=== PATIENT | female | born 1955 | race Caucasian/White ===

== ENCOUNTER → 2020-09-22 10:18 | Outpatient (CLI) | payer MEDICARE, SELFPAY ==
--- NOTE | ~2020-09-22 | DEXA_ITS ---
Bone Density Report Name: Elena Mahoney Age: 65 Sex: Female Ethnicity: White Date of : 1955 Indication: postmenopausal; screening for osteoporosis; height loss; hysterectomy; Referring Provider: LB GIBSON Study: Bone densitometry was performed. Exam Date: September 22, 2020 Accession number: [id number] Bone Density: Region BMD T-score Z-score Classification AP Spine (L1-L4) 0.975 -0.7 1.3 Normal Femoral Neck (Left) 0.641 -1.9 -0.2 Osteopenia Total Hip (Left) 0.806 -1.1 0.2 Osteopenia Femoral Neck (Right) 0.695 -1.4 0.2 Osteopenia Total Hip (Right) 0.797 -1.2 0.2 Osteopenia Total Hip Mean 0.802 -1.2 0.2 Osteopenia World Health Organization criteria for BMD impression classify patients as: Normal (T-score at or above -1.0), Osteopenia (T-score between -1.0 and -2.5), or Osteoporosis (T-score at or below -2.5). 10-year Fracture Risk(1): Major Osteoporotic Fracture 10% Hip Fracture 1.5% Reported Risk Factors: [place] (), Neck BMD=0.641, BMI=27.8 (1) FRAX(R) Version 3.08. Fracture probability calculated for an untreated patient. Fracture probability may be lower if the patient has received treatment. Previous Exams: Region Exam Age BMD T-score BMD Change BMD Change Date g/cm2 vs Baseline vs Previous AP Spine(L1-L4) 09/22/2020 65 0.975 -0.7 0.038* 0.038* 10/31/2017 62 0.937 -1.0 Total Hip(Left) 09/22/2020 65 0.806 -1.1 -0.044* -0.044* 10/31/2017 62 0.850 -0.8 Total Hip(Right) 09/22/2020 65 0.797 -1.2 -0.032* -0.032* 10/31/2017 62 0.829 -0.9 *Denotes significance at 95% confidence level, LSC for AP Spine = 0.022 g/cm2, LSC for Total Hip = 0.027 g/cm2 Clinical Information Provided by Patient: Has used the following medications: Vitamin D, Calcium Has the following medical conditions: Hysterectomy Patient maximum height was 64 Menopause Age: 43 No regular weight bearing exercise Drinks caffeinated beverages Onset of menses at age 11 Number of children 2 Impression: The patient has low bone mass, based on the Left Femoral Neck T-score. The patient has an estimated ten-year risk of hip fracture of 1.5% and an estimated ten-year risk of major fracture of 10%, based on the WHO FRAX algorithm. The BMD for the Total Hip(Left) decreased, changing by -0.044 since the last DXA exam. The BMD for the Total Hip(Right) decreased, changing by -0.032 since the la
== END ==
PROVIDERS: PCP Family Medicine; Visit Provider Obstetrics & Gynecology Gynecology
DX: Z78.0 Asymptomatic menopausal state (principal); M85.852 Other specified disorders of bone density and structure, left thigh; M85.851 Other specified disorders of bone density and structure, right thigh
CPT/HCPCS: 77080

== ENCOUNTER 2023-07-03 08:52 | Outpatient (CLI) | payer MEDICARE, SELFPAY ==
--- NOTE | ~2023-07-03 | DEXA_ITS ---
Bone Density Report Name: GRAYSON MAYEN Age: 68 Sex: Female Ethnicity: White Date of : 1955 Indication: osteopenia; height loss; hysterectomy; Referring Provider: LB GIBSON Study: Bone densitometry was performed. Exam Date: July 03, 2023 Accession number: [id number] Bone Density: Region BMD T-score Z-score Classification AP Spine (L1-L4) 1.011 -0.3 1.8 Normal Femoral Neck (Left) 0.647 -1.8 0.0 Osteopenia Total Hip (Left) 0.777 -1.4 0.1 Osteopenia Femoral Neck (Right) 0.719 -1.2 0.6 Osteopenia Total Hip (Right) 0.803 -1.1 0.4 Osteopenia Total Hip Mean 0.790 -1.3 0.3 Osteopenia World Health Organization criteria for BMD impression classify patients as: Normal (T-score at or above -1.0), Osteopenia (T-score between -1.0 and -2.5), or Osteoporosis (T-score at or below -2.5). 10-year Fracture Risk(1): Major Osteoporotic Fracture 11% Hip Fracture 1.8% Reported Risk Factors: [place] (), Neck BMD=0.647, BMI=28.8 (1) FRAX(R) Version 3.08. Fracture probability calculated for an untreated patient. Fracture probability may be lower if the patient has received treatment. Previous Exams: Region Exam Age BMD T-score BMD Change BMD Change Date g/cm2 vs Baseline vs Previous AP Spine(L1-L4) 07/03/2023 68 1.011 -0.3 0.074* 0.036* 09/22/2020 65 0.975 -0.7 0.038* 0.038* 10/31/2017 62 0.937 -1.0 Total Hip(Left) 07/03/2023 68 0.777 -1.4 -0.073* -0.029* 09/22/2020 65 0.806 -1.1 -0.044* -0.044* 10/31/2017 62 0.850 -0.8 Total Hip(Right) 07/03/2023 68 0.803 -1.1 -0.026 0.006 09/22/2020 65 0.797 -1.2 -0.032* -0.032* 10/31/2017 62 0.829 -0.9 *Denotes significance at 95% confidence level, LSC for AP Spine = 0.022 g/cm2, LSC for Total Hip = 0.027 g/cm2 Clinical Information Provided by Patient: Has used the following medications: Vitamin D, Calcium Has the following medical conditions: Hysterectomy Patient maximum height was 64 Menopause Age: 43 Drinks caffeinated beverages Onset of menses at age 11 Number of children 2 Impression: The patient has low bone mass, based on the Left Femoral Neck T-score. The patient has an estimated ten-year risk of hip fracture of 1.8% and an estimated ten-year risk of major fracture of 11%, based on the WHO FRAX algorithm. The BMD for the Total Hip(Left) decre
== END 2023-07-03 08:53 ==
PROVIDERS: PCP Obstetrics & Gynecology Gynecology; Visit Provider Obstetrics & Gynecology Gynecology
DX: Z78.0 Asymptomatic menopausal state (principal); M85.852 Other specified disorders of bone density and structure, left thigh; M85.851 Other specified disorders of bone density and structure, right thigh
CPT/HCPCS: 77080